=== PATIENT | male | born 1980 | race Caucasian/White ===

== ENCOUNTER 2021-08-30 00:34 | Emergency (ER) | payer MEDICARE, MEDICAID ==
[~2021-08-30 00:34] MED LIST: COGE1INJ PO; INVE3TAB2 OR; cogentin OR; invega OR
--- OUTSIDE RECORDS SUMMARY | 2021-08-30 00:39 | CCD ---
Author Author [facility] Organization [facility] Address Unknown Phone Unavailable Support Name Relationship Address Phone Dianna Aguilera DDS Next Of Kin [address] [place], [place] [id number] Sruthi BECKWITH-C, Shelley Next Of Kin [address] [facility] [place], [place] [id number] Joseph GARZAKimberlyn Next Of Kin [address] [place] [address] UE Next Of Kin Unknown Unavailable DAVY SMITH Next Of Kin [address] [place], [place] [address] Re-disclosure Warning The records that you are about to access may contain information from federally-assisted alcohol or drug abuse programs. If such information is present, then the following federally mandated warning applies: This information has been disclosed to you from records protected by federal confidentiality rules (42 CFR part 2). The federal rules prohibit you from making any further disclosure of this information unless further disclosure is expressly permitted by the written consent of the person to whom it pertains or as otherwise permitted by 42 CFR part 2. A general authorization for the release of medical or other information is NOT sufficient for this purpose. The Federal rules restrict any use of the information to criminally investigate or prosecute any alcohol or drug abuse patient.The records that you are about to access may contain highly sensitive health information, the redisclosure of which is protected by Article 27-F of the [place] State Public Health law. If you continue you may have access to information: Regarding HIV / AIDS; Provided by facilities licensed or operated by the [facility] Office of Mental Health; or Provided by the [facility] Office for People With Developmental Disabilities. If such information is present, then the following [facility] mandated warning applies: This information has been disclosed to you from confidential records which are protected by state law. State law prohibits you from making any further disclosure of this information without the specific written consent of the person to whom it pertains, or as otherwise permitted by law. Any unauthorized further disclosure in violation of state law may result in a fine or long term sentence or both. A general authorization for the release of medical or other information is NOT sufficient authorization for further disc losure. Immunizations Vaccine Date Status Description Data Source(s) COVID-19 VACCINE Moderna 02/04/2021 12:00:00 AM EDT completed [facility] Vaccine Series Complete: YESThis Data wa s Submitted to [facility] Via [facility]. COVID-19 VACCINE Moderna 01/03/2021 12:00:00 AM EDT completed [employer] Vaccine Series Complete: NOThis Data was Submitted to [facility] Via [facility]. Medications No Information Insurance Providers Payer name Policy type / Coverage type Policy ID Covered libertarian ID Covered libertarian's relationship to reid Policy Reid Plan Information MEDICARE [id number] SP [id number] Medicare P [id number] S [id number] Medicaid S [id number] S [id number] Medicaid S [id number] S [id number] MEDICAID [id number] SP [id number] MEDICAID P UNAVAILABLE [id number] S [place] MEDICARE P UNAVAILABLE [id number] S [place]LE [facility] MEDICAID [id number] SP [id number] E [id number] MEDICARE C [id number] S [id number] 3C1 MEDICAID M [id number] S [id number] MEDICAID - O/P EMERGENCY ROOM [id number] Problems, Conditions, and Diagnoses No Information Surgeries/Procedures No Information Results No Information Social History No Information
[2021-08-30 02:35] LABS: AMPHETAMINES LEVEL URINE NEGATIVE (NEGATIVE); BARBITURATES URINE NEGATIVE (NEGATIVE); BENZODIAZEPINES URINE NEGATIVE (NEGATIVE); CANNABINOIDS URINE NEGATIVE (NEGATIVE); COCAINE METABOLITE URINE NEGATIVE (NEGATIVE); METHADONE URINE NEGATIVE (NEGATIVE); OPIATES URINE NEGATIVE (NEGATIVE); PHENCYCLIDINE URINE NEGATIVE (NEGATIVE)
[2021-08-30 02:42] LABS: MEAN CORPUSCULAR HEMOGLOBIN 29.4 pg (27.0-33.0); MEAN CORPUSCULAR HGB CONC 32.6 g/dl (32.0-36.5); MEAN CORPUSCULAR VOLUME 90.2 fl (80.0-96.0); PLATELET COUNT, AUTOMATED 195 10^3/uL (150-450); WHITE BLOOD COUNT 12.7 10^3/uL (4.0-10.0)
[2021-08-30 03:04] LABS: RSV AMPLIFICATION NEGATIVE (NEGATIVE)
[2021-08-30 03:45] LABS: ACETAMINOPHEN LEVEL < 2.0 UG/ML (10.0-30.0); ALBUMIN 4.3 GM/DL (3.2-5.2); ALT/SGPT 29 U/L (12-78); BILIRUBIN,DIRECT 0.1 MG/DL (0.0-0.2); BILIRUBIN,TOTAL 0.3 MG/DL (0.2-1.0); BLOOD UREA NITROGEN 18 MG/DL (7-18); CALCIUM LEVEL 9.2 MG/DL (8.5-10.1); CARBON DIOXIDE LEVEL 24 MEQ/L (21-32); CHLORIDE LEVEL 114 MEQ/L (98-107); CREATININE FOR GFR 1.11 MG/DL (0.70-1.30); ETHYL ALCOHOL (ETHANOL) < 0.003 % (0.000-0.010); GLOMERULAR FILTRATION RATE > 60.0 (>60); GLUCOSE, FASTING 109 MG/DL (70-100); POTASSIUM SERUM 3.9 MEQ/L (3.5-5.1); SALICYLATE LEVEL 2.8 MG/DL (5.0-30.0); SODIUM LEVEL 145 MEQ/L (136-145); TOTAL PROTEIN 7.6 GM/DL (6.4-8.2)
--- OUTSIDE RECORDS SUMMARY | 2021-08-30 04:48 | CCD ---
Author Author [facility] Organization [facility] Address Unknown Phone Unavailable Support Name Relationship Address Phone Dianna Aguilera DDS Next Of Kin [address] [place], [place] [id number] Sruthi BECKWITH-C, Shelley Next Of Kin [address] [facility] [place], [place] [phone] Joseph GARZAKimberlyn Next Of Kin [address] [place] [address] UE Next Of Kin Unknown Unavailable DAVY SMITH Next Of Kin [address] [place], [place] [phone] Re-disclosure Warning The records that you are [...] is protected by Article 27-F of the [place] State Public Health law. If you continue you may have access to information: Regarding HIV / AIDS; Provided by facilities licensed or operated by the [facility] Office of Mental Health; or Provided by the [facility] Office for People With Developmental Disabilities. If such information is present, then the following [facility] mandated warning applies: This information has been [...] law may result in a fine or alf sentence or both. A general authorization for the release of medical or other information is NOT sufficient authorization for further disc losure. Immunizations Vaccine Date Status Description Data Source(s) COVID-19 VACCINE Moderna 02/04/2021 12:00:00 AM EDT completed [employer] Vaccine Series Complete: YESThis Data wa s Submitted to [facility] Via [employer]. COVID-19 VACCINE Moderna 01/03/2021 12:00:00 AM EDT completed [employer] Vaccine Series Complete: NOThis Data was Submitted to [facility] Via [employer]. Medications No Information Insurance Providers Payer name Policy type / Coverage type Policy ID Covered libertarian ID Covered libertarian's relationship to reid Policy Reid Plan Information MEDICARE [id number] SP [id number] [id number] Medicare P [id number] S [id number] [id number] Medicaid S [id number] S [id number] Medicaid S [id number] S [id number] MEDICAID [id number] SP [id number] MEDICAID P UNAVAILABLE [id number] S [place] MEDICARE P UNAVAILABLE [id number] S [place] BLE [facility] MEDICAID [id number] SP [id number] E [id number] MEDICARE C [id number] S [id number] 3C1 MEDICAID M [id number] S [id number] MEDICAID - O/P EMERGENCY ROOM [id number] Problems, Conditions, and Diagnoses No Information Surgeries/Procedures No Information Results No Information Social History No Information
[2021-08-30] MEDS ORDERED: HOME MED LIST COMPLETE! XX SCH (06:25)
--- NOTE | 2021-08-30 19:02 | ECGEPIP ---
[facility] - ED Test Date: 2021-08-30 Pat Name: PABLO TORRES Department: Room: - Gender: Male Architecture Intern: : 1980 Requested By: Francesca Roa Order Number: [id number] Reading MD: Halina Calhoun Measurements Intervals [place] Rate: 61 P: 58 WI: 154 QRS: 31 QRSD: 90 T: 51 QT: 392 QTc: 394 Interpretive Statements Normal sinus rhythm No prior Electronically Signed on 08-30-2021 19:01:33 EST by Halina Calhoun
[2021-08-31] MEDS ORDERED: LORazepam 2 MG TAB PO STA (19:39)
[2021-09-01 02:33] VITALS: BP 138/86
== END 2021-09-01 02:37 ==
LOC: M ED 00:34
DX: F29 Unspecified psychosis not due to a substance or known physiological condition (principal); F20.9 Schizophrenia, unspecified

== ENCOUNTER 2022-12-19 12:39 | Emergency (ER) | payer MEDICAID, MEDICARE ==
[~2022-12-19] VITALS: Ht 182.9 cm; Wt 90.0 kg
[2022-12-19 13:55] LABS: HEMATOCRIT 48.5 % (42.0-52.0); HEMOGLOBIN 15.6 g/dl (13.5-17.5); MEAN CORPUSCULAR HEMOGLOBIN 30.1 pg (27.0-33.0); MEAN CORPUSCULAR HGB CONC 32.2 g/dl (32.0-36.5); MEAN CORPUSCULAR VOLUME 93.6 fl (80.0-96.0); PLATELET COUNT, AUTOMATED 188 10^3/uL (150-450); RED BLOOD COUNT 5.18 10^6/uL (4.30-6.10)
[2022-12-19 14:00] LABS: ETHYL ALCOHOL (ETHANOL) 0.006 % (0.000-0.010)
[2022-12-19 14:01] LABS: ACETAMINOPHEN LEVEL < 2.0 UG/ML (10.0-20.0)
[2022-12-19 14:02] LABS: SALICYLATE LEVEL < 3.0 MG/DL (<30)
[2022-12-19 14:05] LABS: ALBUMIN 4.3 G/DL (3.2-5.2); ALKALINE PHOSPHATASE 91 U/L (46-116); ALT/SGPT 27 U/L (7.0-40); AST/SGOT 29 U/L (<34); BILIRUBIN,DIRECT 0.1 MG/DL (<0.4); BILIRUBIN,TOTAL 0.4 MG/DL (0.3-1.2); BLOOD UREA NITROGEN 17 MG/DL (9-23); CALCIUM LEVEL 9.3 MG/DL (8.5-10.1); CARBON DIOXIDE LEVEL 24 MMOL/L (20-31); CHLORIDE LEVEL 110 MMOL/L (98-107); CREATININE FOR GFR 1.01 MG/DL (0.70-1.30); GLOMERULAR FILTRATION RATE > 60.0 (>60); GLUCOSE, FASTING 104 MG/DL (60-100); POTASSIUM SERUM 4.2 MMOL/L (3.5-5.1); SODIUM LEVEL 141 MMOL/L (136-145); THYROID STIMULATING HORMONE 1.337 uIU/ML (0.55-4.78); TOTAL PROTEIN 7.1 G/DL (5.7-8.2)
[2022-12-20] MEDS ORDERED: HOME MED LIST COMPLETE! XX SCH (02:00)
[2022-12-20 13:21] LABS: AMPHETAMINES LEVEL URINE NEGATIVE (NEGATIVE); BARBITURATES URINE NEGATIVE (NEGATIVE); BENZODIAZEPINES URINE NEGATIVE (NEGATIVE); CANNABINOIDS URINE NEGATIVE (NEGATIVE); COCAINE METABOLITE URINE NEGATIVE (NEGATIVE); METHADONE URINE NEGATIVE (NEGATIVE); OPIATES URINE NEGATIVE (NEGATIVE); PHENCYCLIDINE URINE NEGATIVE (NEGATIVE)
[2022-12-20] MEDS ORDERED: OLANZapine ORAL DISINTEGRATING TAB 5MG PO ONE (14:10)
[2022-12-21] MEDS ORDERED: NICOTINE 21MG/24HR 1 EA TRANSDERMAL TD ONE (03:15)
[2022-12-21] MEDS: NICOTINE POLACRILEX 2 MG GUM PO PRN ×2 (03:25→11:19)
[2022-12-21 13:49] VITALS: BP 156/93
== END 2022-12-21 13:50 ==
LOC: M ED 12:39
DX: F29 Unspecified psychosis not due to a substance or known physiological condition (principal); F20.9 Schizophrenia, unspecified; F17.200 Nicotine dependence, unspecified, uncomplicated

== ENCOUNTER 2023-12-31 02:12 | Inpatient (IN) | payer MEDICARE, MEDICAID ==
[~2023-12-31] VITALS: Ht 182.9 cm; Wt 97.6 kg
[2023-12-31 04:02] LABS: BASO # 0.1 10^3/uL (0.0-0.2); BASO % 0.5 % (0.0-1.0); EOS # 0.1 10^3/uL (0.0-0.5); EOS % 1.2 % (0.0-3.0); HEMATOCRIT 49.3 % (42.0-52.0); HEMOGLOBIN 16.3 g/dl (13.5-17.5); LYMPH % 32.3 % (24.0-44.0); MEAN CORPUSCULAR HEMOGLOBIN 30.5 pg (27.0-33.0); MEAN CORPUSCULAR HGB CONC 33.1 g/dl (32.0-36.5); MEAN CORPUSCULAR VOLUME 92.1 fl (80.0-96.0); MONO # 0.5 10^3/uL (0.0-0.8); MONO % 5.6 % (2.0-8.0); NEUTROPHILS # 5.7 10^3/uL (1.5-8.5); NEUTROPHILS % 60.2 % (36.0-66.0); PLATELET COUNT, AUTOMATED 229 10^3/uL (150-450); RED BLOOD COUNT 5.35 10^6/uL (4.30-6.10); WHITE BLOOD COUNT 9.4 10^3/uL (4.0-10.0)
[2023-12-31 04:21] LABS: AMPHETAMINES LEVEL URINE NEGATIVE (NEGATIVE); BARBITURATES URINE NEGATIVE (NEGATIVE); BENZODIAZEPINES URINE NEGATIVE (NEGATIVE); COCAINE METABOLITE URINE NEGATIVE (NEGATIVE); METHADONE URINE NEGATIVE (NEGATIVE); OPIATES URINE NEGATIVE (NEGATIVE); PHENCYCLIDINE URINE NEGATIVE (NEGATIVE)
[2023-12-31 04:22] LABS: CANNABINOIDS URINE POSITIVE (NEGATIVE)
[2023-12-31 04:25] LABS: ETHYL ALCOHOL (ETHANOL) 0.006 % (0.000-0.010)
[2023-12-31 04:26] LABS: SALICYLATE LEVEL < 3.0 MG/DL (<30)
[2023-12-31 04:27] LABS: ALBUMIN 4.6 G/DL (3.2-5.2); ALKALINE PHOSPHATASE 89 U/L (46-116); ALT/SGPT 33 U/L (7.0-40); AST/SGOT 35 U/L (<34); BILIRUBIN,DIRECT 0.3 MG/DL (<0.4); BILIRUBIN,TOTAL 0.6 MG/DL (0.3-1.2); TOTAL PROTEIN 7.7 G/DL (5.7-8.2)
[2023-12-31 04:46] LABS: BLOOD UREA NITROGEN 17 MG/DL (9-23); CALCIUM LEVEL 9.2 MG/DL (8.5-10.1); CARBON DIOXIDE LEVEL 26 MMOL/L (20-31); CHLORIDE LEVEL 110 MMOL/L (98-107); CREATININE FOR GFR 0.97 MG/DL (0.70-1.30); GLOMERULAR FILTRATION RATE > 60.0 (>60); GLUCOSE, FASTING 98 MG/DL (60-100); POTASSIUM SERUM 4.1 MMOL/L (3.5-5.1); SODIUM LEVEL 142 MMOL/L (136-145)
[2023-12-31] MEDS ORDERED: VITA200031 PO (08:51)
[2023-12-31] MEDS ORDERED: MULT-40 PO (08:51)
[2023-12-31] MEDS ORDERED: HOME MED LIST COMPLETE! XX SCH (08:55)
[2023-12-31] MEDS ORDERED: MOM 30ML SUSPENSION UDC PO PRN (13:00)
[2023-12-31] MEDS ORDERED: MAALOX 30 ML SUSP *UDC PO PRN (13:00)
[2023-12-31 15:00] VITALS: BP 136/82; TEMP 97.2; O2SAT 98
[2024-01-01 05:48] VITALS: BP 116/64; TEMP 97; O2SAT 99
[2024-01-01] MEDS: ACETAMINOPHEN TAB 650MG DOSE (2X325MG) PO PRN (09:02)
[2024-01-01] MEDS: risperiDONE 1 MG TAB PO SCH (11:31)
[2024-01-01] MEDS: INFLUENZA QUADRIVALENT PF VACCINE 0.5ML SYRINGE IM.IMMUN ONE (16:03)
[2024-01-01 16:34] VITALS: BP 135/71; TEMP 97.7; O2SAT 99
[2024-01-01] MEDS: traZODone 50 MG TAB PO PRN (20:01)
[2024-01-02 06:47] VITALS: BP 147/81; TEMP 96.5; O2SAT 100
[2024-01-02 07:01] LABS: CHOLESTEROL RISK RATIO 3.46 (<5); HDL CHOLESTEROL 25.1 MG/DL (>40); LDL CHOLESTEROL 45.1 MG/DL (<100); NON-HDL-C 61.9 MG/DL
[2024-01-02 16:35] VITALS: BP 130/78; TEMP 97.2; O2SAT 99
[2024-01-02] MEDS: risperiDONE 2 MG TAB PO SCH (20:27)
[2024-01-03] MEDS: IBUPROFEN 400MG TAB PO PRN (09:59)
[2024-01-03] MEDS: FLUoxetine 20MG CAP PO SCH (11:37)
[2024-01-03 16:22] VITALS: BP 129/79; TEMP 97.6; O2SAT 100
[2024-01-04 06:34] VITALS: BP 118/65; TEMP 98.5; O2SAT 100
[2024-01-04] MEDS: BENZTROPINE 1 MG TAB PO SCH (09:55)
[2024-01-04 17:51] VITALS: BP 125/58; TEMP 97.9; O2SAT 99
[2024-01-05 06:31] VITALS: BP 118/75; TEMP 97.6; O2SAT 100
[2024-01-05 17:34] VITALS: BP 160/86; TEMP 98.3; O2SAT 99
[2024-01-05 20:00] VITALS: BP 136/62; TEMP 97.8; O2SAT 98
[2024-01-05] MEDS: diphenhydrAMINE 25MG CAP PO PRN (22:02)
[2024-01-06 06:23] VITALS: BP 134/78; TEMP 97.1; O2SAT 98
[2024-01-06] MEDS: NICOTINE 21MG/24HR 1 EA TRANSDERMAL TD SCH (12:22)
[2024-01-06 17:23] VITALS: BP 159/89; TEMP 98; O2SAT 99
[2024-01-06] MEDS: risperiDONE 3 MG TAB PO SCH (21:30)
[2024-01-07 06:22] VITALS: BP 118/68; TEMP 97.6; O2SAT 98
[2024-01-07 17:34] VITALS: BP 117/59; TEMP 98; O2SAT 99
[2024-01-08 06:14] VITALS: BP 128/76; TEMP 97; O2SAT 99
[2024-01-08] MEDS ORDERED: PALIPERIDONE PAL 234MG/1.5ML INJ (INVEGA)(FREE PSY INPT ONLY) IM ONE (12:00)
[2024-01-08] MEDS: PALIPERIDONE PAL 234MG/1.5ML INJ (INVEGA)(FREE PSY INPT ONLY) IM ONE (14:40)
[2024-01-08 16:23] VITALS: BP_SYST 126; BP_SYST 147; BP_DIAS 70; BP_DIAS 72; TEMP 98; TEMP 98.3; O2SAT 100; O2SAT 99
[2024-01-09 06:10] VITALS: BP 126/60; TEMP 97.4; O2SAT 96
[2024-01-09 06:22] VITALS: BP 147/70; TEMP 96.6; O2SAT 98
[2024-01-09 14:17] VITALS: BP 148/81; TEMP 98.1; O2SAT 99
[2024-01-10 06:19] VITALS: BP 136/72; TEMP 97.2; O2SAT 99
[2024-01-10 16:01] VITALS: BP 120/60; TEMP 98.2; O2SAT 99
[2024-01-11 06:21] VITALS: BP 133/81; TEMP 99; O2SAT 99
[2024-01-11] MEDS: PALIPERIDONE PAL 156MG/1ML INJ(INVEGA)(FREE PSY INPT ONLY) IM ONE (11:38)
[2024-01-11 17:15] VITALS: BP 144/86; TEMP 97.4; O2SAT 99
[2024-01-12 06:06] VITALS: BP 139/66; TEMP 96.7; O2SAT 99
[2024-01-12] MEDS ORDERED: FLUO20CA22 PO (07:45)
[2024-01-12] MEDS ORDERED: RISP3TAB20 PO (07:45)
[2024-01-12] MEDS ORDERED: TRAZ-252 PO (07:45)
[2024-01-12] MEDS ORDERED: NICO21PAT TD (07:45)
[2024-01-12] MEDS ORDERED: INVE234I IM (07:45)
[2024-01-12] MEDS ORDERED: BENZ1TAB5 PO (07:45)
== END 2024-01-12 13:13 | disposition home or self-care (01) | DRG 885 ==
LOC: M ED 02:12 → M ED INP 12:57 → M PSY 14:55
PROVIDERS: ADMIT Student in an Organized Health Care Education/Training Program; ATTEND Student in an Organized Health Care Education/Training Program
DX: F20.9 Schizophrenia, unspecified (principal); Z56.0 Unemployment, unspecified; Z11.52 Encounter for screening for COVID-19; Z63.8 Other specified problems related to primary support group

== ENCOUNTER 2024-06-25 08:19 | Emergency (ER) | payer MEDICARE, MEDICAID ==
[~2024-06-25] VITALS: Ht 182.9 cm; Wt 99.1 kg
[~2024-06-25 08:19] MED LIST changes: +BENZ1TAB5 PO; +FLUO-365 PO; +INVE234I IM; +MULT-40 PO; +NICO21PAT TD; +RISP3TAB20 PO; +TRAZ-252 PO; +VITA200031 PO
[2024-06-25] MEDS: ACETAMINOPHEN 325 MG TAB PO ONE (10:09)
[2024-06-25] MEDS: risperiDONE 3 MG TAB PO ONE (10:09)
[2024-06-25 11:47] VITALS: BP 123/77; TEMP 96.6; O2SAT 98
== END 2024-06-25 12:00 | disposition home or self-care (01) ==
LOC: M ED 08:19
DX: J02.9 Acute pharyngitis, unspecified (principal); F25.9 Schizoaffective disorder, unspecified; Z79.899 Other long term (current) drug therapy

== ENCOUNTER 2024-12-04 01:34 | Inpatient (IN) | payer MEDICARE, MEDICAID ==
[~2024-12-04] VITALS: Ht 182.9 cm; Wt 90.7 kg
[2024-12-04 02:10] LABS: BASO # 0.1 10^3/uL (0.0-0.2); BASO % 0.5 % (0.0-1.0); EOS # 0.2 10^3/uL (0.0-0.5); EOS % 1.5 % (0.0-3.0); HEMATOCRIT 47.4 % (42.0-52.0); HEMOGLOBIN 15.6 g/dl (13.5-17.5); LYMPH # 3.3 10^3/uL (1.5-5.0); LYMPH % 28.7 % (24.0-44.0); MEAN CORPUSCULAR HEMOGLOBIN 29.9 pg (27.0-33.0); MEAN CORPUSCULAR HGB CONC 32.9 g/dl (32.0-36.5); NEUTROPHILS # 6.8 10^3/uL (1.5-8.5); PLATELET COUNT, AUTOMATED 230 10^3/uL (150-450); RED BLOOD COUNT 5.21 10^6/uL (4.30-6.10); WHITE BLOOD COUNT 11.3 10^3/uL (4.0-10.0)
[2024-12-04 02:39] LABS: ETHYL ALCOHOL (ETHANOL) 0.005 % (0.000-0.010)
[2024-12-04 02:41] LABS: ALBUMIN 4.3 G/DL (3.2-5.2); ALKALINE PHOSPHATASE 104 U/L (40-129); ALT/SGPT 18 U/L (7.0-40); AST/SGOT 24 U/L (<34); BILIRUBIN,DIRECT < 0.1 MG/DL (<0.4); BILIRUBIN,TOTAL 0.2 MG/DL (0.3-1.2); BLOOD UREA NITROGEN 23 MG/DL (9-23); CALCIUM LEVEL 9.4 MG/DL (8.5-10.1); CARBON DIOXIDE LEVEL 24 MMOL/L (20-31); CHLORIDE LEVEL 109 MMOL/L (98-107); CREATININE FOR GFR 1.11 MG/DL (0.70-1.30); GLOMERULAR FILTRATION RATE > 60.0 (>60); GLUCOSE, FASTING 89 MG/DL (60-100); POTASSIUM SERUM 4.1 MMOL/L (3.5-5.1); SODIUM LEVEL 144 MMOL/L (136-145); TOTAL PROTEIN 7.6 G/DL (5.7-8.2)
[2024-12-04 03:07] LABS: APPEARANCE, URINE HAZY (CLEAR); BACTERIA, URINE AUTO NEGATIVE (NEGATIVE); BILIRUBIN, URINE AUTO NEGATIVE (NEGATIVE); BLOOD, URINE BLOOD NEGATIVE (NEGATIVE); COLOR, URINE AMBER (YELLOW); GLUCOSE, URINE (UA) AUTO NEGATIVE (NEGATIVE); KETONE, URINE AUTO NEGATIVE (NEGATIVE); LEUKOCYTE ESTERASE, URINE AUTO NEGATIVE (NEGATIVE); MUCUS, URINE MODERATE (NEGATIVE); NITRITE, URINE AUTO NEGATIVE (NEGATIVE); PROTEIN, URINE AUTO 1+ mg/dL (NEGATIVE); RBC, URINE AUTO 3 /HPF (0-3); SPECIFIC GRAVITY URINE AUTO 1.031 (1.002-1.035); SQUAMOUS EPITHELIAL CELL UR AU 1 /HPF (0-6); URIC ACID CRYSTALS SMALL; WBC, URINE AUTO 1 /HPF (0-3)
[2024-12-04 03:15] LABS: BARBITURATES URINE NEGATIVE (NEGATIVE); BENZODIAZEPINES URINE NEGATIVE (NEGATIVE); COCAINE METABOLITE URINE NEGATIVE (NEGATIVE); METHADONE URINE NEGATIVE (NEGATIVE); OPIATES URINE NEGATIVE (NEGATIVE); PHENCYCLIDINE URINE NEGATIVE (NEGATIVE)
[2024-12-04 03:18] LABS: AMPHETAMINES LEVEL URINE POSITIVE (NEGATIVE); CANNABINOIDS URINE POSITIVE (NEGATIVE)
[2024-12-04 03:28] LABS: THYROID STIMULATING HORMONE 1.776 uIU/ML (0.55-4.78)
[2024-12-04 04:04] LABS: SALICYLATE LEVEL < 3.0 MG/DL (<30)
[2024-12-04] MEDS ORDERED: MOM 30ML SUSPENSION UDC PO PRN (06:10)
[2024-12-04] MEDS ORDERED: MAALOX 30 ML SUSP *UDC PO PRN (06:10)
[2024-12-04 09:22] VITALS: BP 132/73; TEMP 97.1; O2SAT 97
[2024-12-04 15:07] VITALS: BP 131/73; TEMP 97.2; O2SAT 98
[2024-12-04] MEDS: OLANZapine ORAL DISINTEGRATING TAB 5MG PO PRN (15:19)
[2024-12-05 07:01] VITALS: BP 110/55; TEMP 97.4; O2SAT 99
[2024-12-05] MEDS ORDERED: HOME MED LIST COMPLETE! XX SCH (09:55)
[2024-12-05] MEDS: risperiDONE 0.5 MG TAB PO SCH (14:36)
[2024-12-05] MEDS: ACETAMINOPHEN 325 MG TAB PO PRN (16:44)
[2024-12-05 17:25] VITALS: BP 137/84; TEMP 98; O2SAT 100
[2024-12-05] MEDS: BENZTROPINE 0.5 MG TAB PO SCH (21:32)
[2024-12-06 07:09] VITALS: BP 152/84; TEMP 98.2; O2SAT 99
[2024-12-06] MEDS: IBUPROFEN 400MG TAB PO PRN (09:25)
[2024-12-06 17:12] VITALS: BP 133/97; TEMP 97.2; O2SAT 98
[2024-12-06] MEDS: RISPERIDONE 1 MG TAB PO SCH (20:41)
[2024-12-06] MEDS: traZODone 50 MG TAB PO PRN (20:45)
[2024-12-07 06:38] VITALS: BP 148/88; TEMP 97.1; O2SAT 98
[2024-12-07 15:19] VITALS: BP 141/86; TEMP 97; O2SAT 99
[2024-12-07] MEDS: PALIPERIDONE PAL 234MG/1.5ML INJ (INVEGA)(FREE PSY INPT ONLY) IM ONE (16:01)
[2024-12-08 06:34] VITALS: BP 137/80; TEMP 98; O2SAT 100
[2024-12-08] MEDS: diphenhydrAMINE 25MG CAP PO PRN (12:15)
[2024-12-08 16:46] VITALS: BP 161/88; TEMP 98.2; O2SAT 96
[2024-12-09 06:44] VITALS: BP 138/89; TEMP 98.5; O2SAT 100
[2024-12-09 15:55] VITALS: BP 124/72; TEMP 98.3; O2SAT 95
[2024-12-10 06:53] VITALS: BP 141/73; TEMP 99.7; O2SAT 100
[2024-12-10] MEDS: NICOTINE POLACRILEX 2 MG GUM PO PRN (12:30)
[2024-12-10 16:07] VITALS: BP 123/71; TEMP 98.7; O2SAT 99
[2024-12-11 07:03] VITALS: BP 121/66; TEMP 97.7; O2SAT 98
[2024-12-11 15:28] VITALS: BP 125/70; TEMP 98; O2SAT 100
[2024-12-12 06:32] VITALS: BP 127/62; TEMP 97.6; O2SAT 96
[2024-12-12 16:10] VITALS: BP 135/78; TEMP 96.7; O2SAT 100
[2024-12-13 06:28] VITALS: BP 124/67; TEMP 97; O2SAT 100
[2024-12-13] MEDS: PALIPERIDONE PAL 156MG/1ML INJ(INVEGA)(FREE PSY INPT ONLY) IM ONE (10:24)
[2024-12-13 15:17] VITALS: BP 146/73; TEMP 97.2; O2SAT 100
[2024-12-13] MEDS: risperiDONE 2 MG TAB PO SCH (21:06)
[2024-12-14 06:34] VITALS: BP 151/96; TEMP 97; O2SAT 95
[2024-12-14 15:10] VITALS: BP 146/77; TEMP 97.6; O2SAT 98
[2024-12-15 06:35] VITALS: BP 143/82; TEMP 97.8; O2SAT 99
[2024-12-15] MEDS ORDERED: TRAZ-252 PO (10:29)
[2024-12-15] MEDS ORDERED: RISP2TAB32 PO (10:29)
[2024-12-15] MEDS ORDERED: BENZ0.5T2 PO (10:29)
== END 2024-12-15 13:16 | disposition home or self-care (01) | DRG 885 ==
LOC: M ED 01:34 → M ED INP 06:07 → M PSY 08:21
PROVIDERS: ADMIT Psychiatry & Neurology Neurology; ATTEND Psychiatry & Neurology Neurology
DX: F25.0 Schizoaffective disorder, bipolar type (principal); F15.20 Other stimulant dependence, uncomplicated; F41.9 Anxiety disorder, unspecified; F12.20 Cannabis dependence, uncomplicated; D72.829 Elevated white blood cell count, unspecified; Z79.899 Other long term (current) drug therapy